=== PATIENT | female | born 1965 | race Caucasian/White ===

== ENCOUNTER 2017-05-12 08:56 | Observation (INO) | payer MEDICAID ==
[~2017-05-12] VITALS: Ht 165.1 cm; Wt 58.6 kg
[2017-05-12] VITALS (15 sets, daily range): BP systolic 98–140; BP diastolic 64–86; PULSE 82–96; RESP 13–18; Ht 165.1 cm; Wt 58.6 kg
[2017-05-12 12:42] LABS: BASOPHIL # 0.1 10^3/ul (0.0-0.1); BASOPHILS % 1.1 % (0.0-2.0); EOSINOPHILS # 0.1 10^3/ul (0.0-0.5); EOSINOPHILS % 0.8 % (0.0-7.0); HEMOGLOBIN 12.8 g/dl (12.0-16.0); LYMPHOCYTES # 2.1 10^3/ul (0.8-2.9); LYMPHOCYTES % 32.5 % (15.0-51.0); MEAN CORPUSCULAR HEMOGLOBIN 28.1 pg (29.0-33.0); MEAN CORPUSCULAR HGB CONC 31.2 g/dl (32.0-37.0); MEAN CORPUSCULAR VOLUME 89.9 fl (82.0-101.0); MEAN PLATELET VOLUME 10.7 fl (7.4-10.4); MONOCYTE # 0.7 10^3/ul (0.3-0.9); MONOCYTES % 10.4 % (0.0-11.0); NEUTROPHILS % 54.9 % (39.0-77.0); PLATELET COUNT 248 10^3/UL (140-415); RED BLOOD COUNT 4.56 10^6/ul (4.20-5.40); RED CELL DISTRIBUTION WIDTH 14.3 % (11.5-14.5); WHITE BLOOD COUNT 6.3 10^3/ul (4.8-10.8)
[2017-05-12 13:00] LABS: INR 0.95; PROTIME 12.7 Sec (12.2-14.2)
[2017-05-12 13:01] LABS: PARTIAL THROMBOPLASTIN TIME 25.5 Sec (25.0-35.0)
[2017-05-12] MEDS ORDERED: CEFAZOLIN 1 GM/50 ML (PMX) 50 ML IVPB ONE (13:30)
[2017-05-12] MEDS ORDERED: SOD CHLORIDE 0.9% 1,000 ML IV ONE (13:30)
[2017-05-12 14:27] LABS: ALBUMIN 3.8 g/dl (3.3-4.9); ALBUMIN/GLOBULIN RATIO 1.26; BILIRUBIN,INDIRECT 0.2 mg/dl (0-1.1); BILIRUBIN,TOTAL 0.2 mg/dl (0.2-1.3); TOTAL PROTEIN 6.8 g/dl (6.1-8.1)
[2017-05-12 14:30] LABS: CALCIUM 8.8 mg/dl (8.4-10.2); CREATININE 0.55 mg/dl (0.44-1.00); POTASSIUM 4.7 mmol/L (3.5-5.1)
[2017-05-12] MEDS ORDERED: ISOSULFAN BLUE 1% 5 ML INJ SC ONE (16:46)
[2017-05-12] MEDS ORDERED: MIDAZOLAM 1 MG/ML 2 ML INJ ONE (17:29)
[2017-05-12] MEDS ORDERED: FENTAnyl 50 MCG/ML VIAL ONE (17:29)
[2017-05-12] MEDS ORDERED: PHENYLephrine (100 MCG/ML) 5ML SYG ONE (17:37)
[2017-05-12] MEDS ORDERED: morphine 10 MG INJ ONE (17:56)
--- NOTE | 2017-05-12 18:33 | SIPON ---
Date/Time of Note Date/Time of Note DATE: 05/12/17 TIME: 18:30 Operative Report Preoperative Diagnosis Invasive cancer right breast Postoperative Diagnosis Same Operation/Procedure Performed Needle directed right partial mastectomy with axillary dissection utilizing sentinel lymph node technique Surgeon: MADISON COPELAND MD web assistant: SHAWANDA LOYOLA MD Anesthesia Type: general Estimated Blood Loss: 10 - 50 ml's Transfusion Required: no Specimens 1) right partial mastectomy specimen 2) sentinel lymph node Grafts/Implants: none Complications: no MADISON COPELAND MD May 12, 2017 18:33
[2017-05-12] MEDS ORDERED: LIDOCAINE 2% (SDV) 5 ML INJ ONE (18:37)
[2017-05-12] MEDS ORDERED: PROPOFOL 20 ML ONE (18:37)
[2017-05-12] MEDS ORDERED: ONDANSETRON 4 MG INJ ONE (18:37)
[2017-05-12] MEDS ORDERED: CEFAZOLIN 1 GM INJ ONE (18:37)
[2017-05-12] MEDS ORDERED: ACETAMINOPHEN 1000MG/100ML IV 100 ML IVPB PRN (19:00)
[2017-05-12] MEDS ORDERED: morphine 2 MG INJ IV PRN (19:00)
[2017-05-12] MEDS ORDERED: ONDANSETRON 4 MG INJ IV PRN (19:00)
[2017-05-12] MEDS: D5W-0.45 NACL + KCL 20 MEQ 1,000 ML IV SCH (20:46)
--- NOTE | 2017-05-12 21:29 | OPR ---
DATE OF OPERATION: 05/12/2017 PREOPERATIVE DIAGNOSIS: Invasive cancer, right breast. POSTOPERATIVE DIAGNOSIS: Invasive cancer, right breast. OPERATION PERFORMED: Needle directed right partial mastectomy and axillary dissection utilizing sentinel lymph node technique. ANESTHESIA: General. ANESTHESIOLOGIST: Alfredo Jeff MD SURGEON: Fransisco Viera MD [employer] DES[employer]ER: Xavi Alves MD INDICATIONS FOR PROCEDURE: Patient is a 51-year-old female, who underwent surveillance mammography and was found to have a mass at approximately the 3 o'clock location and also in the subareolar location. It was suspicious, biopsy confirmed invasive cancer. She was counseled as to the risks versus benefits of breast conservation surgery with needle directed right partial mastectomy and axillary dissection utilizing sentinel lymph node technique. She consented and was scheduled for surgery. OPERATIVE PROCEDURE: On the morning of surgery, patient presented to [facility] where she underwent localization of the lesion performed by attending radiologist, Dr. Abbie Fisher. Subsequently, she was brought to the operating theater and placed under general anesthesia. The right breast and axillary region was prepped and draped in the usual sterile fashion. Approximately 4 mL of 1 percent Lymphazurin blue dye were then injected peritumor early. The breast was gently massaged for 12 minutes. At this point, a 3 to 4 cm incision was made in the right axillary hairline. Subcutaneous tissue was dissected with cautery down through the clavipectoral fascia. Dye stained lymphatic was identified and traced to the sentinel node. The sentinel node was resected using LigaSure device. Intraoperative analysis of the node performed by attending pathologist, Dr. Alves, did not reveal evidence of metastatic disease. Therefore, no further nodes were taken. The wound was irrigated, minimal bleeding was controlled with cautery, and the skin was then reapproximated with a 4-0 Vicryl suture in subcuticular fashion. Attention was then directed to performing the partial mastectomy. A periareolar incision was made from approximately the 12 o'clock location through the 3 o'clock location to the 6 o'clock location. Subcutaneous tissue was dissected with cautery. The skin edges were elevated with skin hooks and wide circumferential dissection of the tissue associated with the mass then took place taking great care to ensure adequate margin. The specimen was transected, oriented, and sent for permanent pathologic analysis. The wound was then irrigated and minimal bleeding was controlled with cautery. The skin was reapproximated with 4-0 Vicryl suture in subcuticular fashion. Dermabond was then applied to both incisions. The patient tolerated the procedure well. Estimated blood loss was 20 cc. There were no complications and the patient transported in stable condition to the recovery room. Dictated By: Fransisco Viera MD /[email or web address] /Document#: [id number]
[2017-05-13] MEDS ORDERED: OXYCODONE/ACETAMINOPHEN (5/325) TAB PO PRN
[2017-05-13] MEDS: D5W-0.45 NACL + KCL 20 MEQ 1,000 ML IV SCH ×3 (02:33→18:33)
[2017-05-13 02:58] VITALS: BP 107/61; RESP 16
--- NOTE | 2017-05-13 03:25 | HP ---
DATE OF ADMISSION: 05/12/2017 CHIEF COMPLAINT AND HISTORY OF PRESENT ILLNESS: The patient is a 51-year-old female, who underwent surveillance mammography and was found to have a right breast mass. The patient subsequently underwent a biopsy, which was positive for invasive cancer. The patient was brought into the hospital today and underwent right breast mastectomy and axillary dissection. The patient did have significant postoperative pain. Therefore, patient is being admitted for further evaluation and management. The patient denied any headache or syncope. No history of fever or chills. No history of itch or shortness of breath. No history of abdominal pain. No history of nausea, vomiting, or diarrhea. No history of leg edema. Other review of systems unremarkable. ALLERGIES: NONE. SOCIAL HISTORY: No smoking. No alcohol. FAMILY HISTORY: Noncontributory. MEDICATIONS: Prior to admission, none. PHYSICAL EXAMINATION: GENERAL: Patient is conscious, awake, alert. VITAL SIGNS: Temperature 98.5, pulse 96, respirations 18, blood pressure 100/64, O2 sat 97 on room air. HEENT: Conjunctivae and lids normal. Oropharynx clear. NECK: Supple. No mass, lymphadenopathy or thyromegaly. CHEST: Fairly clear. HEART: S1, S2 normal. No murmur. ABDOMEN: Soft, nontender. Bowel sounds present. EXTREMITIES: No leg edema. NEUROLOGIC: Patient is awake, alert, with no gross focal deficit. LABS: Done this morning. WBC 6.3, hemoglobin 12.8, platelet 248. Sodium 141, potassium 4.7, BUN 8, creatinine 0.5. Liver enzymes normal. IMPRESSION: Right breast cancer, status post right partial mastectomy and axillary dissection. PLAN: The patient will be admitted on medical floor. Patient will be started on a clear liquid diet, will advance as tolerated. The patient will be started on IV Tylenol and IV morphine for pain control. We will also add Percocet. We will use SCD for DVT prophylaxis. The patient already had received a preop dose of Ancef. Dictated By: Xavier Bazan MD /arya/jose /Document#: [id number]
[2017-05-13 08:08] VITALS: BP 107/65; RESP 16
[2017-05-13 14:00] VITALS: BP 97/57; RESP 16
--- NOTE | 2017-05-13 15:21 | PN ---
DATE: 05/13/2017 SUBJECTIVE DATA: Status post right breast needle-localized partial mastectomy with sentinel lymph node excision on the right side. The patient does not have any complaint. OBJECTIVE DATA: VITAL SIGNS: Stable and afebrile. Blood pressure normal. EXTREMITIES: Full range of motion of the right upper extremity. The dressing is not tight. ASSESSMENT AND PLAN: A 51-year-old female with invasive cancer, right breast, who underwent partial mastectomy with axillary dissection and sentinel lymph technique. Today, patient is stable, postop day number 1. Instructions were given. Patient is going to call Dr. Viera' office on Monday to make an appointment for followup. The patient does not have a drain. The dressing is intact. The patient is going to be discharged after receiving pain medication prescription. Dictated By: Xavi Alves MD /arya/ivanna /Document#: [id number]
--- NOTE | 2017-05-13 18:37 | DS ---
Date/Time of Note Date/Time of Note DATE: 05/13/17 TIME: 18:37 Discharge Summary Admission/Discharge Info Admit Date/Time May 12, 2017 at 18:35 Discharge Date/Time Patient Condition: Stable Home Meds No Active Prescriptions or Reported Meds Primary Care Provider Not On Staff Doctor SMILEY MCDANIEL May 13, 2017 18:37
--- NOTE | 2017-05-13 18:38 | PDOCDIS ---
SMILEY MCDANIEL May 13, 2017 18:38
[2017-05-13] MEDS ORDERED: FAMO20TA18 PO (18:39)
[2017-05-13] MEDS ORDERED: DOCU-144 PO (18:39)
[2017-05-13] MEDS ORDERED: Oxycodone/Acetamin (5/325) PO (18:39)
== END 2017-05-13 19:35 | disposition home or self-care (01) ==
LOC: SDS 08:56 → MS2 18:35
PROVIDERS: ADMIT Surgery Surgical Oncology; ATTEND Surgery Surgical Oncology
DX: C50.911 Malignant neoplasm of unspecified site of right female breast (principal)
CPT/HCPCS: 19301; 38525; 38900; 80053; 84703; 85025; 85610; 85730; 88307; 88331; J0690; J2250; J2270; J2405; J3010; J3480; Z7500; Z7512; Z7610; 96361; 96374; G0378; J2370; Q9968

== ENCOUNTER 2017-09-18 22:28 | Emergency (ER) | END 2017-09-19 01:15 | disposition left against medical advice (07) ==